=== PATIENT | male | born 1960 | race Caucasian/White ===

== ENCOUNTER 2017-12-26 05:06 | Inpatient (IN) | payer MEDICAID ==
[2017-12-26] MEDS ORDERED: ASPIRIN 81 MG CHEWABLE TAB ONE (05:16)
[2017-12-26] MEDS ORDERED: ASPIRIN 81 MG CHEWABLE TAB PO ONE ×2 (05:16→05:18)
--- NOTE | 2017-12-26 05:17 | CPEKG ---
Heart Rate: 76 RR Interval: 789 P-R Interval: 180 QRSD Interval: 92 QT Interval: 416 QTC Interval: 468 P [place]: 76 QRS [place]: 44 T Wave [place]: 95 EKG Severity - ABNORMAL ECG - EKG Impression: SINUS RHYTHM EKG Impression: INFERIOR INJURY, PROBABLE EARLY ACUTE INFARCT Electronically Signed By: Radha Alonso 26-Dec-2017 21:08:41
[2017-12-26] MEDS ORDERED: NS 1,000 ML IV ONE (05:19)
--- NOTE | 2017-12-26 05:23 | EDPHY ---
H & P Stated Complaint: CP Time Seen by Provider: 12/26/17 05:20 HPI/ROS: Chief Complaint: Chest pain HPI: 57-year-old male woke from sleep this morning with sudden onset of substernal chest pain radiating to his neck. Does not have a history of similar episodes in the past. Pain is a 10 on 10. Pain is described as a tightness in his chest and neck. There are no aggravating or alleviating factors. No shortness of breath. Does have a family history of coronary artery disease. He does smoke. He was drinking some alcohol last night. He also does use some daily marijuana. ROS: 10 point Review of Systems is negative except as noted in the HPI. PMH: Denies Social History: Positive smoking, positive alcohol, positive for marijuana Family History: Coronary artery disease in his grandfather who of a heart attack in his 50s Physical Exam: Gen: Awake, Alert, uncomfortable appearing HEENT: Nose: no rhinorrhea Eyes: PERRLA, EOMI Mouth: Moist mucosa Neck: Supple, no JVD Chest: nontender, lungs clear to auscultation Heart: S1, S2 normal, no murmur Abd: Soft, non-tender, no guarding Back: no CVA tenderness, no midline tenderness Ext: no edema, non-tender Skin: no rash Neuro: CN II-XII intact, Sensation grossly intact, Strength 5/5 in bilateral upper and lower extremities - Personal History Current Tetanus/Diphtheria Vaccine: Unsure Current Tetanus Diphtheria and Acellular Pertussis (TDAP): Unsure - Medical/Surgical History Hx Asthma: No Hx Chronic Respiratory Disease: No Hx Diabetes: No Hx Cardiac Disease: No Hx Renal Disease: No Hx Cirrhosis: No Hx Alcoholism: No Hx HIV/AIDS: No Hx Splenectomy or Spleen Trauma: No Other PMH: medical genital herpes. surgery broken right wrist, vasectomy - Social History Smoking Status: Current every day smoker Constitutional: Initial Vital Signs Temperature (C) 36.7 C 12/26/17 05:08 Heart Rate 60 12/26/17 05:08 Respiratory Rate 16 12/26/17 05:08 Blood Pressure 95/68 L 12/26/17 05:08 O2 Sat (%) 100 12/26/17 05:08 O2 Delivery Mode Room Air Allergies/Adverse Reactions: No Known Allergies Allergy (Unverified 09/09/16 13:52) Home Medications: Medication Instructions Recorded NK [No Known Home Meds] 03/06/14 Medical Decision Making - Diagnostics EKG Interpretation: ECG time 5:16 a.m. Sinus rhythm rate of 76. There is ST elevations of 2-3 mm in leads to 3 and AVF. There are reciprocal changes in V1 through V5. Consistent with an acute inferior infarct. Imaging Results: Chest x-ray is negative per my interpretation. Imaging: I viewed and interpreted images myself ED Course/Re-evaluation: 5:16 a.m. ECG changes noted. Cardiac alert called. Patient has received aspirin. Given his blood pressure 103 systolic in the inferior nature I am not giving him nitrates at this time. He is given morphine 5 mg. Will give him a fluid bolus. Chest x-ray is ordered. Cardiology has been paged. 05:[address] Mascorro, he is on his way to the hospital. 05:45 is at the patient's bedside. Critical Care Time: I spent a total of 37 minutes of critical care time in obtaining history, performing a physical exam, bedside monitoring of interventions, collecting and interpreting tests and discussion with consultants but not including time spent performing procedures. - Data Points Medications Given: Discontinued Medications Aspirin (Aspirin) 324 mg PO EDNOW ONE Stop: 12/26/17 05:17 Last Admin: 12/26/17 05:19 Dose: 324 mg Aspirin (Aspirin) 324 mg PO EDNOW ONE Stop: 12/26/17 05:19 Last Admin: 12/26/17 05:23 Dose: Not Given Sodium Chloride (Ns) 1,000 mls @ 0 mls/hr IV EDNOW ONE; Wide Open PRN Reason: Protocol Stop: 12/26/17 05:20 Last Admin: 12/26/17 05:22 Dose: 1,000 mls Morphine Sulfate (Morphine) 4 mg IVP EDNOW ONE Stop: 12/26/17 05:19 Last Admin: 12/26/17 05:22 Dose: 4 mg Morphine Sulfate (Morphine) 4 mg IVP ONCE ONE Stop: 12/26/17 05:32 Last Admin: 12/26/17 05:36 Dose: 4 mg Ondansetron HCl (Zofran) 4 mg IVP EDNOW ONE Stop: 12/26/17 05:25 Last Admin: 12/26/17 05:25 Dose: 4 mg Departure - Departure Disposition: [facility] Inpatient Acute Clinical Impression: STEMI (ST elevation myocardial infarction) Condition: Serious
[2017-12-26] MEDS ORDERED: ONDANSETRON 4 MG/2 ML VIAL ONE (05:24)
[2017-12-26] MEDS ORDERED: ONDANSETRON 4 MG/2 ML VIAL IVP ONE (05:24)
[2017-12-26] MEDS ORDERED: LIDOCAINE 1% 300 MG/30 ML SDV ONE (05:55)
[2017-12-26] MEDS ORDERED: fentaNYL 100 MCG/2 ML INJ ONE (05:55)
[2017-12-26] MEDS ORDERED: MIDAZOLAM 2 MG/2 ML VIAL ONE ×2 (05:55→06:29)
--- NOTE | 2017-12-26 05:55 | PDPROPOC ---
Sedation Plan of Care Sedation Plan of Care: vital signs stable, mental status noted, patient educated of risks, benefits, alternatives, patient can tolerate sedation ASA Classification: ASA 3 Planned drugs: fentanyl, midazolam Mallampati Score: Class 1 Mallampati Reference Image: Patient passed 3-3-2 rule?: Yes
[2017-12-26] MEDS ORDERED: IOPAMIDOL (ISOVUE-370) 150 ML BTL IV ONE (05:56)
[2017-12-26] MEDS ORDERED: BIVALIRUDIN 250 MG/5 ML VIAL IV ONE (05:58)
--- NOTE | 2017-12-26 05:59 | PDGENHP ---
History and Physical - Chief Complaint chest pain - History of Present Illness 57-year-old male no prior cardiovascular history will this morning with acute onset substernal chest pressure radiating to the jaw. This was associated with diaphoresis shortness of breath. He was extremely uncomfortable and came to the emergency for further evaluation. On arrival EKG showed ST-elevation inferior leads with reciprocal changes cardiac alert was activated. On my arrival the patient has continued to have 6 had 10 chest discomfort. He denies significant shortness of breath. He has no PND orthopnea. He has not had syncope or near syncope. Cardiac Risk includes tobacco abuse. Patient drinks alcohol heavily last drink late last night. History Information - Allergies/Home Medication List Allergies/Adverse Reactions: No Known Allergies Allergy (Unverified 09/09/16 13:52) Home Medications: NK [No Known Home Meds] 03/06/14 [Last Taken Unknown] I have personally reviewed and updated: family history, medical history, social history, surgical history - Surgical History Reports: no pertinent surgical hx - Family History Positive for: CAD - Social History Smoking Status: Current every day smoker Alcohol Use: Heavy Review of Systems Review of Systems: Constitutional: Reports: diaphoresis, malaise EENMT: Reports: no symptoms Cardiac: Reports: chest pain. Denies: edema, irregular heart rate, lightheadedness, palpitations, syncope Respiratory: Reports: shortness of breath. Denies: cough, orthopnea, wheezing Gastrointestinal: Reports: abdominal pain Genitourinary: Reports: no symptoms Muscolosketal: Reports: no symptoms Skin: Reports: no symptoms Neurological: Reports: anxiety Hematologic/Lymphatic: Reports: no symptoms Immunologic/Allergy: Reports: no symptoms Physical Exam Physical Exam: Temp Pulse Resp BP Pulse Ox 36.7 C 76 16 110/79 100 12/26/17 05:08 12/26/17 05:32 12/26/17 05:32 12/26/17 05:32 12/26/17 05:32 O2 (L/minute) 2 Constitutional: uncomfortable Eyes: scleral injection, No icteric sclera Ears, Nose, Mouth, Throat: moist mucous membranes, hearing normal, ears appear normal Cardiovascular: regular rate and rhythym, pulses symmetric bilaterally, No systolic murmur, No irregularly irregular, No JVD, No carotid bruit Peripheral Pulses: 1+: carotid (R), carotid (L), dorsalis-pedis (R), dorsalis- pedis (L), 2+: femoral (R), femoral (L) Respiratory: no respiratory distress, no rales or rhonchi Gastrointestinal: normoactive bowel sounds, soft, non-tender abdomen, no palpable masses, No tenderness, No ascites Genitourinary: no bladder fullness Skin: warm, normal color, no induration Musculoskeletal: full muscle strength, no muscle tenderness Neurologic: AAOx3, No weakness, No facial droop Psychiatric: anxious Lymph, Heme, Immunologic: no cervical LAD, no supraclavicular LAD Lab Data & Imaging Review 12/26/17 05:30 12/26/17 05:30 WBC 10.15 10^3/uL (3.80-9.50) H 12/26/17 05:30 RBC 4.81 10^6/uL (4.40-6.38) 12/26/17 05:30 Hgb 15.2 g/dL (13.7-17.5) 12/26/17 05:30 Hct 43.6 % (40.0-51.0) 12/26/17 05:30 MCV 90.6 fL (81.5-99.8) 12/26/17 05:30 MCH 31.6 pg (27.9-34.1) 12/26/17 05:30 MCHC 34.9 g/dL (32.4-36.7) 12/26/17 05:30 RDW 12.0 % (11.5-15.2) 12/26/17 05:30 Plt Count 232 10^3/uL (150-400) 12/26/17 05:30 Sodium 144 mEq/L (135-145) 12/26/17 05:30 Potassium 4.2 mEq/L (3.5-5.2) 12/26/17 05:30 Chloride 106 mEq/L (97-110) 12/26/17 05:30 Carbon Dioxide 25 mEq/l (22-31) 12/26/17 05:30 Anion Gap 13 mEq/L (8-16) 12/26/17 05:30 BUN 11 mg/dL (7-23) 12/26/17 05:30 Creatinine 0.9 mg/dL (0.7-1.3) 12/26/17 05:30 Estimated GFR > 60 12/26/17 05:30 Glucose 128 mg/dL (70-100) H 12/26/17 05:30 Calcium 10.2 mg/dL (8.5-10.4) 12/26/17 05:30 EKG Interpretation: Positive for: ST elevation (Inferior leads with reciprocal ST depression) Assessment & Plan Assessment: STEMI (ST elevation myocardial infarction) (Acute) This point the patient is hemodynamically stable with ongoing 6 out of 10 discomfort. He will be loaded with 600 mg of Plavix. Direct angiography with likely PCI the right coronary artery. Patient will be aggressively risk stratified with aggressive secondary prevention. In particular discontinuation of cigarettes with addition of a nicotine patch. Considerations for withdrawal from alcohol protocol during hospitalization. Risks and benefits were discussed. The patient's artery received morphine prior to my arrival. This was discussed with his father who was present at the bedside. No contraindications to angiography identified. Plan: Directed angiography with PCI.
[2017-12-26] MEDS ORDERED: CLOPIDOGREL BISULFATE 75 MG TAB PO ONE (06:00)
[2017-12-26] MEDS ORDERED: LORazepam 2 MG/ML INJ IVP PRN (06:04)
[2017-12-26] MEDS ORDERED: NITROGLYCERIN 1,500 MCG/15 ML VIAL MISC ONE (06:39)
[2017-12-26] MEDS ORDERED: NITROGLYCERIN 0.4 MG BTL SL PRN (07:00)
[2017-12-26] MEDS ORDERED: ATROPINE SULFATE 1 MG/10 ML SYR IVP PRN (07:00)
--- NOTE | 2017-12-26 07:08 | PDDXCAT ---
Diagnostic Cath Note - . 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 ZEB grade 0 flow EDP: 24 mm of mercury post procedure LVEF: 50% with inferior basilar akinesis Complications: None Estimated blood loss: <50ml Closure method: Angioseal Assessment: Inferior wall ST segment elevation myocardial infarction with thrombotic occlusion of a large co dominant right coronary artery. Plan: PCI Intervention: Procedure: Balloon angioplasty, Pronto thrombectomy, insertion of a 3.0 by 16 mm synergy stent in the setting of inferior wall ST segment elevation myocardial infarction and thrombotic occlusion of the right coronary. After reviewing diagnostic angiograms elected to proceed with emergency PCI. Patient was pre-loaded with Plavix 600 mg in the emergency department. He has administered Angiomax as an anticoagulant with a therapeutic ACT of 297. Using a 6 Serbian JR4 guiding catheter the right coronary was selectively intubated. Using a 0.014 luge wire the thrombotic occlusion was crossed and the wire was placed in the distal vessel. Initial inflation was performed with a 3 mm balloon to 8 atmospheres for 20 seconds. This allowed some penetration of dye into the distal vessel. A 2nd inflation was performed to 6 atmospheres for 20 seconds more distally with further penetration of dye. There spoke there was significant thrombus burden. The distal vessels seemed quite small. Was elected to proceed with thrombectomy. A Pronto catheter was placed over the wire with 2 thrombectomy runs withdrawing significant thrombus. Repeat angiograms now showed excellent penetration of dye to the distal vessel ZEB grade 2. A focal lesion was seen. A 3.0 x 16 mm synergy stent was placed across the lesion and deployed using a single inflation to 18 atmospheres. Repeat angiograms revealed ZEB grade 2 +flow to the distal vessel. Patient was administered IV normal saline and nitroglycerin. Orthogonal views showed a very distal cutoff. Attempts at rewired the vessel distal to this were made but were not successful. In light of excellent flow was elected to stop at this time. Peripheral angiogram showed the stick to be adequate. The arteriotomy was closed using an Angio-Seal. Patient is taken to the ICU for continued care. Total contrast 300 cc. Sedation 6 mg Versed 100 mcg of fentanyl. Radiation: 9.4 minutes of fluoroscopy with 635 mGy. Conclusions: Inferior wall ST segment elevation myocardial infarction with occlusion of a large codominant right coronary status post successful PCI, thrombectomy, insertion of a 3.0 x 16 mm synergy stent. Patient be treated aggressively with secondary prevention, Erasmo inhibition, beta praveen, high-dose statin, dual antiplatelet therapy with aspirin and Plavix. He has taken to the ICU in stable condition. Patient Problems: Problems Problem Status Onset STEMI (ST elevation myocardial infarction) Acute
--- NOTE | 2017-12-26 07:36 | CPEKG ---
Heart Rate: 63 RR Interval: 952 P-R Interval: 108 QRSD Interval: 92 QT Interval: 436 QTC Interval: 447 P [place]: -86 QRS [place]: 26 T Wave [place]: 75 EKG Severity - ABNORMAL ECG - EKG Impression: ECTOPIC ATRIAL RHYTHM EKG Impression: SHORT MT INTERVAL, ACCELERATED AV CONDUCTION EKG Impression: PROBABLE INFERIOR INFARCT, ACUTE Electronically Signed By: Brenden Daniel 26-Dec-2017 09:11:11
[2017-12-26] MEDS: NS 1,000 ML IV SCH ×2 (07:37→13:56)
--- NOTE | 2017-12-26 07:39 | PDMN ---
Medical Necessity Medical necessity: C/M review: est. > 2 MN LOS for eval and TX of acute inferior ST segment elevation myocardial infarction with occlusion of large codominant right coronary artery requiring emergent cardiac catheterization - [facility], successful PCI, thrombectomy, stent x 1 to RCA, IV fluids, ongoing cardiac monitoring, frequent vital signs, CIWA protocol, pulse oximetry, supplemental O2 in ICU, comorbid tobacco abuse- current every day smoker, heavy alcohol use per H/P, Cardiology procedure report.
--- NOTE | 2017-12-26 08:23 | GCON ---
[f rep st] CONSULTATION POST GRADUATE INTERN CONSULTATION REASON FOR ADMISSION: Coronary artery disease and chest pain. HISTORY OF PRESENT ILLNESS: Mr. Joseph is a 57-year-old white male without known past medical histo ry. He came to the emergency room with complaints of new onset substernal chest pain. This was assoc iated with radiation to the jaw as well as diaphoresis and breathlessness. EKG suggested inferior [place] and cardiac alert was activated. He subsequently went to the cardiac catheterization lab where he w as found to have a 100% occluded RCA. He underwent balloon angioplasty as well as stent placement. Cheo guajardo has been begun on TOBY inhibitors, beta blockers, high-dose statin as well as aspirin and Plavix. Cheo guajardo has been transferred to intensive care unit where he is currently resting comfortably. REVIEW OF SYSTEMS: A 10-point review of systems was performed and is negative with the exception of what was in the HPI. PAST MEDICAL HISTORY: None. PAST SURGICAL HISTORY: None. ALLERGIES: No known allergies to medication. FAMILY HISTORY: Significant for coronary artery disease. SOCIAL HISTORY: He is a 30+ pack-year smoker and continues to smoke. He also has significant alcoho l use. PHYSICAL EXAMINATION: VITAL SIGNS: Blood pressure is 98/56, pulse 65, respiration 11, temperature, he is afebrile, oxygen saturation 97% on 2 L. GENERAL: He is a well-developed, well-nourished, 57-y ear-old white male who is resting comfortably in no acute distress. HEENT: Eyes are PERRLA, EOMI. Th roat shows no erythema or tonsillar hypertrophy. NECK: Supple. There is no cervical adenopathy. H EART: Regular rate and rhythm without murmurs, rubs, or gallops. LUNGS: Diminished breath sounds b ut no wheeze. ABDOMEN: Soft, nontender. Bowel sounds are present in all 4 quadrants. EXTREMITIES: No clubbing, cyanosis, or edema. LABORATORIES: White count is 10, hemoglobin 15, hematocrit 43, platelet count is 232. Sodium 144, p otassium 4.2, chloride 106, CO2 25, BUN 11, creatinine 0.9, glucose is 128, troponins are negative at 0.012. IMPRESSION: 1. Coronary artery disease. 2. Status post inferior myocardial infarction. 3. Status post stenting of the right coronary artery as well as balloon angioplasty. 4. Tobacco abuse. 5. Likely alcoholism. RECOMMENDATIONS: 1. Adequate pain control. 2. Deep venous thrombosis and pulmonary embolus prophylaxis. 3. Stress ulcer prophylaxis. 4. Will watch patient closely for signs of alcohol withdrawal. 5. Will consider nicotine patch. 6. Will discuss with patient regarding smoking cessation, as well as alcohol cessation. /[id number]/MODL
[2017-12-26] MEDS: METOPROLOL TARTRATE 25 MG TAB PO SCH ×2 (08:37→19:49)
[2017-12-26] MEDS: THIAMINE HCL 500 MG in NS 500 ML IV SCH (08:37)
[2017-12-26] MEDS: ATORVASTATIN CALCIUM 40 MG TAB PO SCH (08:38)
[2017-12-26] MEDS: ASPIRIN EC 325 MG TAB PO SCH (08:38)
[2017-12-26] MEDS ORDERED: NICOTINE 21 MG/24 HR PATCH TD SCH (09:00)
[2017-12-26] MEDS: LISINOPRIL 2.5 MG TAB PO SCH (09:40)
[2017-12-26 10:29] LABS: CREATINE KINASE 638 IU/L (0-224)
[2017-12-26] MEDS: ONDANSETRON 4 MG/2 ML VIAL IVP PRN ×2 (12:48→20:42)
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
[2017-12-26] MEDS: PANTOPRAZOLE SODIUM 40 MG VIAL IVP SCH (12:51)
[2017-12-26 14:48] LABS: CREATINE KINASE 895 IU/L (0-224)
[2017-12-26] MEDS ORDERED: PROTOCOL MAGNESIUM 1 DOSE IV PRN (16:23)
[2017-12-26] MEDS ORDERED: PROTOCOL POTASSIUM 1 DOSE MISC PRN (16:23)
[2017-12-26 16:43] LABS: CREATINE KINASE 1080 IU/L (0-224)
--- NOTE | 2017-12-26 17:02 | CPEKG ---
Heart Rate: 66 RR Interval: 909 P-R Interval: 136 QRSD Interval: 98 QT Interval: 416 QTC Interval: 436 P [place]: 42 QRS [place]: -21 T Wave [place]: 31 EKG Severity - ABNORMAL ECG - EKG Impression: SINUS RHYTHM EKG Impression: PROBABLE INFERIOR INFARCT, AGE INDETERMINATE Electronically Signed By: Brenden Daniel 27-Dec-2017 12:08:26
[2017-12-26 23:11] LABS: CREATINE KINASE 1200 IU/L (0-224)
[2017-12-27 03:57] LABS: PLATELET COUNT 162 10^3/uL (150-400)
[2017-12-27] MEDS ORDERED: MAGNESIUM SULF 1 GM/DEXTROSE 100 ML IV ONE (05:38)
--- NOTE | 2017-12-27 07:58 | SOAPPROG ---
SOAP Progress Note Assessment/Plan: Assessment: 1. Inferior wall ST segment elevation myocardial infarction with nonsustained ventricular tachycardia. 2. Mild ischemic cardiomyopathy ejection fraction 50% with inferior akinesis. 3. Coronary artery disease status post PCI the right coronary. 4. Tobacco abuse. 5. Heavy alcohol use. 6. Postoperative anemia with GI bleeding and blood in the stool. 7. Post myocardial infarction depression. Procedures: Left heart catheterization PCI and stenting of the right coronary artery with thrombectomy. 12/26/2017. Echocardiogram pending for today. 12/27/17 08:51 Impression: Day 1. Status post myocardial infarction. Telemetry overnight showed nonsustained ventricular tachycardia. Blood pressure has been soft. Hospital course complicated by intermittent nausea and vomiting. No further chest pain. Plan: Advanced diet slowly. Electrolyte replacement. Continue current medical therapy. Discontinue nicotine patches this may be contributing to his nausea. Follow hematocrit carefully with bleeding in the stool need for dual antiplatelet therapy. Begin phase 1 cardiac rehabilitation. Support offered for expected depression related to acute illness. Subjective: Intermittent nausea and vomiting with difficulty keeping food down. Episode of bright red blood per rectum without melena. No further chest pain, shortness of breath. No palpitations, syncope, near syncope. No PND orthopnea. Social history: Patient reports not smoking heavily at home. He is tearful today related to illness. He loves his family and would like to be there for his children. Objective: Medications Generic Name Dose Route Start Last Admin Trade Name Freq PRN Reason Stop Dose Admin Aspirin Buffered 325 mg 12/26/17 09:00 12/26/17 08:38 Aspirin Ec PO 06/24/18 08:59 325 mg DAILY [facility] Atorvastatin Calcium 80 mg 12/26/17 09:00 12/26/17 08:38 Lipitor PO 06/24/18 08:59 80 mg DAILY [facility] Clopidogrel Bisulfate 75 mg 12/27/17 09:00 Plavix PO 06/25/18 08:59 DAILY [facility] Lisinopril 2.5 mg 12/26/17 09:00 12/26/17 09:40 Zestril PO 06/24/18 08:59 2.5 mg DAILY [facility] Metoprolol Tartrate 25 mg 12/26/17 09:00 12/26/17 19:49 Lopressor PO 06/24/18 08:59 25 mg BID [facility] Nicotine 21 mg 12/26/17 09:00 12/26/17 08:37 Nicoderm Cq TD 06/24/18 08:59 21 mg DAILY [facility] Vital Signs Temp Pulse Resp BP Pulse Ox 37.3 C 71 15 91/57 L 93 12/27/17 04:00 12/27/17 06:00 12/27/17 06:00 12/27/17 06:00 12/27/17 06:00 Laboratory Results 12/27/17 03:45 12/27/17 03:45 12/26/17 12/27/17 12/28/17 05:59 05:59 05:59 Intake Total 6605 Output Total 350 Balance 6255 Laboratory Tests 12/26/17 12/26/17 12/26/17 09:30 14:00 15:54 Creatinine Creatine Kinase 895 H 1080 H Troponin I 11.500 H 24.800 H 30.300 H NT-Pro-B Natriuret Pep 12/26/17 12/27/17 22:15 03:45 Creatinine 0.8 Creatine Kinase 1200 H Troponin I 36.900 H NT-Pro-B Natriuret Pep 822 H Physical Exam - Physical Exam General Appearance: alert, anxiety EENT: PERRL/EOMI, normal ENT inspection Neck: non-tender, full range of motion, supple Respiratory: chest non-tender, lungs clear, normal breath sounds Cardiac/Chest: normal peripheral pulses, regular rate, rhythm, gallop, No edema , No JVD, No systolic murmur Peripheral Pulses: 1+: carotid (R), carotid (L), 2+: femoral (R) (No hematoma. No bruit), femoral (L) Abdomen: normal bowel sounds, non-tender, soft, No organomegaly, No guarding, No rebound Rectal: blood streaked stool, other (By history) Back: Normal inspection, No CVA tenderness Skin: normal color, warm/dry, No cyanosis Lymphatic: no adenopathy Extremities: normal range of motion, non-tender, No pedal edema, No calf tenderness Neuro/Psych: no motor/sensory deficits, alert, normal mood/affect, depressed affect, No facial droop ICD10 Worksheet Patient Problems: Problems Problem Status Onset STEMI (ST elevation myocardial infarction) Acute Review of Systems - Review of Systems Constitutional: weakness. denies: chills, fever EENTM: no symptoms reported Respiratory: no symptoms reported Cardiac: no symptoms reported Gastrointestinal/Abdominal: nausea, vomiting, blood streaked stools Genitourinary: no symptoms Musculoskelatal: no symptoms Skin: no symptoms Neurological: no symptoms, depressed Hematologic/Lymphatic: no symptoms reported Immunologic/allergic: no symptoms reported Past Medical History - Personal History Current Tetanus/Diphtheria Vaccine: Unsure Current Tetanus Diphtheria and Acellular Pertussis (TDAP): Unsure - Medical/Surgical History Hx Asthma: No Hx Chronic Respiratory Disease: No Hx Cardiac Disease: No Hx Diabetes: No Hx Renal Disease: No Hx Alcoholism: No Hx Cirrhosis: No Hx HIV/AIDS: No Hx Splenectomy or Spleen Trauma: No Other PMH: medical genital herpes. surgery broken right wrist, vasectomy - Social History Smoking Status: Current every day smoker Alcohol Use: Heavy
[2017-12-27] MEDS: THIAMINE HCL 500 MG in NS 500 ML IV SCH (09:00)
[2017-12-27] MEDS: PANTOPRAZOLE SODIUM 40 MG VIAL IVP SCH ×2 (09:26→21:18)
[2017-12-27] MEDS: ATORVASTATIN CALCIUM 40 MG TAB PO SCH (09:26)
[2017-12-27] MEDS: LISINOPRIL 2.5 MG TAB PO SCH (09:26)
[2017-12-27] MEDS: ASPIRIN EC 325 MG TAB PO SCH (09:27)
[2017-12-27] MEDS: CLOPIDOGREL BISULFATE 75 MG TAB PO SCH (09:27)
[2017-12-27] MEDS: METOPROLOL TARTRATE 25 MG TAB PO SCH ×2 (09:27→21:18)
[2017-12-27] MEDS ORDERED: NS W/ 20 KCl/L 1,000 ML IV SCH (09:45)
--- NOTE | 2017-12-27 09:59 | ASMTCMCOM ---
CM Note CM Note Notes: 57yr old male admitted for STEMI, CAD, CP. He has a Hx of smoking and ETOH. Lives with his family. CM to give patient ETOH res. Patient to attend Cardiac Rehab on discharge. Date Signed: 12/27/2017 09:58 AM Electronically Signed By:Callie Grace LCSW
--- NOTE | 2017-12-27 10:29 | ECHO ---
[email or web address] [address] [address] Main: [phone] Fax: [email or web address] Echocardiogram Name: YANY BOYD MR#: [id number] Study Date: 12/27/2017 Study Time: 08:54 AM Date of : 1960 Age: 57 year(s) Height: 177.8 cm (70 in.) Weight: 81.65 kg (180 lb.) BSA: 2 m2 Gender: Male Examination: Echo Indication: STEMI Image Quality: Adequate Contrast: Requested by: Sal Mascorro BP: 93 mmHg/58 mmHg Heart Rate: Rhythm: Indication: STEMI Procedure Staff Veterinary Technician Assistant: Rachel Nixon [facility] Reading Physician: Sal Mascorro MD Requesting Provider: Measurements: Chambers Valvular Assessment AV/MV Valvular Assessment TV/PV Normal Normal Normal Name Value Range Name Value Range Name Value Range Ao Norah (MM): 2.9 cm (2.2 cm-3.7 AV Vmax: 1.50 m/s (1 m/s-1.7 TR Vmax: 2.50 mm/s ( - ) cm) m/s) TR PGmax: 25 mmHg ( - ) IVSd (2D): 0.9 cm (0.6 cm-1.1 AV maxP mmHg ( - ) syst. PAP: 35 mmHg ( - ) cm) LVOT Vmax: 1.25 m/s (0.7 m/s-1.1 PV Vmax: 1.03 m/s (0.6 m/s-0.9 LVDd (2D): 4.8 cm (4.2 cm-5.9 m/s) m/s) cm) MV E Vmax: 0.86 m/s ( - ) PV PGmax: 4 mmHg ( - ) LVDs (2D): 3.4 cm (2.1 cm-4 MV A Vmax: 0.56 m/s ( - ) cm) MV E/A: 1.54 ( - ) LVPWd (2D): 0.8 cm (0.6 cm-1 cm) LVEF (BP): 55 % (>=55 %) RVDd(2D): 3.7 cm (1.9 cm-3.8 cmmm) Continued Measurements: Chambers Valvular Assessment AV/MV Valvular Assessment TV/PV Name Value Name Value Name Value LADs: 3.2 cm MV DecTime: 243 m/s CVP (est.): 10 mmHg LADs Lon.8 cm MV E' Septal: 0.08 m/s LA Area: 20.1 cm2 MV E/E' Septal: 10.50 LA Volume: 61 ml MV E/E' Lateral: 8.60 LA Volume Index: 30.5 ml/m2 TAPSE: 2.7 cm RA Area: 18.0 cm2 Patient: YANY BOYD Study Date: 12/27/2017 Page 1 of 2 08:54 AM Additional Vessels Name Value Ao Ascendin.4 cm Findings: Left Ventricle: Normal size left ventricle. No LV hypertrophy. Normal global systolic LV function. EF is 55 %. No regional wall motion abnormality. Normal diastolic LV function. Right Ventricle: Normal size right ventricle. Normal RV function. Left Atrium: The left atrium is normal in size. Right Atrium: The right atrium is borderline dilated. Mitral Valve: The mitral valve is normal in appearance and function. Trivial mitral valve regurgitation. No mitral stenosis is present. Aortic Valve: The aortic valve is normal in appearance and function. There is no significant aortic valve regurgitation. No aortic valve stenosis is present. Tricuspid Valve: The tricuspid valve is normal in appearance and function. Mild tricuspid regurgitation is present. Right ventricular systolic pressure measures 35mmHg. The pulmonary artery pressure is normal. Pulmonic Valve: The pulmonic valve is normal in appearance and function. Trivial pulmonic valve regurgitation. Aorta: The aorta is normal. Normal size aortic root measuring 2.9 cm. Normal size ascending aorta measuring 3.4 cm. IVC: The IVC is dilated. Pericardium: Trivial anterior pericardial effusion. (No Signature Object) Patient: YANY BOYD Study Date: 12/27/2017 Page 2 of 2 08:54 AM [id number]
--- NOTE | 2017-12-27 18:02 | HOSPPROG ---
Hospitalist Progress Note Assessment/Plan: #Inferior wall STEMI (ST elevation myocardial infarction) #s/p PCI, balloon angioplasty, stent placement #Tobacco abuse disorder #chronic ETOH use, not in WD #Nause and Vomiting #questionable GI Bleed, heme + stool #Anemia #Gastritis #Soft BP Plan: He has had blood per rectum. Originally reports as bright red, but now possibly some melena. Will increase PPI to BID dosing and monitor H/H closely. If further drop then he would need GI consult and possible transfusion. He remains on dual antiplatelet therapy Antiemetics PRN BP is soft. Will provide IVF at this time. He has already received low dose BB and TOBY-I and for now this will be continued Nicotine patches have been d/c due to nausea CIWA-Ativan, does not appear to be in WD DVT proph per primary, would hold off on chemical proph cont ICU care Subjective: bp is soft. + nause and vomiting. Objective: Vital Signs Temp Pulse Resp BP Pulse Ox 37.9 C 68 18 102/73 89 L 12/27/17 17:02 12/27/17 17:02 12/27/17 17:02 12/27/17 17:02 12/27/17 17:02 Laboratory Results 12/27/17 03:45 12/27/17 03:45 12/26/17 12/27/17 12/28/17 05:59 05:59 05:59 Intake Total 6605 1700 Output Total 350 Balance 6255 1700 - Physical Exam Constitutional: no apparent distress Eyes: PERRL Ears, Nose, Mouth, Throat: moist mucous membranes Cardiovascular: regular rate and rhythym, No edema Respiratory: no respiratory distress Gastrointestinal: normoactive bowel sounds Skin: warm Neurologic: AAOx3 Psychiatric: interacting appropriately, not anxious, not encephalopathic Lymph, Heme, Immunologic: No petechiae ICD10 Worksheet Patient Problems: Problems Problem Status Onset STEMI (ST elevation myocardial infarction) Acute
[2017-12-28 03:59] LABS: PLATELET COUNT 146 10^3/uL (150-400)
--- NOTE | 2017-12-28 09:05 | CPEKG ---
Heart Rate: 66 RR Interval: 909 P-R Interval: 144 QRSD Interval: 100 QT Interval: 424 QTC Interval: 445 P [place]: 25 QRS [place]: -36 T Wave [place]: -48 EKG Severity - ABNORMAL ECG - EKG Impression: SINUS RHYTHM EKG Impression: INFERIOR INFARCT, likely recent Electronically Signed By: Sae Varner 30-Dec-2017 10:11:09
--- NOTE | 2017-12-28 09:10 | HOSPPROG ---
Hospitalist Progress Note Assessment/Plan: # abd pain/melena/BRBPR/anemia - check stat CT abd/pelvis - discussed with Dr Escalante - based on CT may need EGD # etOH use - not in w/d - cont CIWA today, may dc tomorrow # STEMI s/p RCA stent - management per cards (currently on asa/plavix/lipitor/metop/lisino) Subjective: c/o inability to sonia PO with emesis; also c/o significant abd pain Objective: Vital Signs Temp Pulse Resp BP Pulse Ox 37.1 C 68 18 100/64 94 12/28/17 08:11 12/28/17 08:11 12/28/17 08:11 12/28/17 08:11 12/28/17 08:11 Laboratory Results 12/28/17 03:08 12/28/17 03:08 12/27/17 12/28/17 12/29/17 05:59 05:59 05:59 Intake Total 6605 2440 900 Output Total 350 425 Balance 6255 2014 chart reviewed echo reviewed - Physical Exam Constitutional: no apparent distress, appears nourished Cardiovascular: regular rate and rhythym, systolic murmur, No irregularly irregular Respiratory: no respiratory distress, no rales or rhonchi Gastrointestinal: normoactive bowel sounds, guarding (voluntary), rebound, other (diffuse TTP, mostly RLQ) ICD10 Worksheet Patient Problems: Problems Problem Status Onset STEMI (ST elevation myocardial infarction) Acute
[2017-12-28] MEDS ORDERED: IOPAMIDOL (ISOVUE-300) 100 ML BTL ONE (09:12)
[2017-12-28] MEDS ORDERED: NS 1,000 ML IV SCH (09:15)
[2017-12-28 09:46] LABS: INR 1.18 (0.83-1.16); PROTIME(PATIENT) 15.2 SEC (12.0-15.0)
[2017-12-28] MEDS: PANTOPRAZOLE SODIUM 40 MG VIAL IVP SCH ×2 (10:19→21:47)
[2017-12-28] MEDS: LISINOPRIL 2.5 MG TAB PO SCH (10:21)
[2017-12-28] MEDS: METOPROLOL TARTRATE 25 MG TAB PO SCH ×2 (10:21→21:47)
--- NOTE | 2017-12-28 10:26 | SOAPPROG ---
SOAP Progress Note Assessment/Plan: Assessment: 1. Inferior wall ST segment elevation myocardial infarction with nonsustained ventricular tachycardia. 2. Mild ischemic cardiomyopathy ejection fraction 50% with inferior akinesis. 3. Coronary artery disease status post PCI the right coronary. 4. Tobacco abuse. 5. Heavy alcohol use. 6. Postoperative anemia with GI bleeding and blood in the stool. 7. Post myocardial infarction depression. *8. Abdominal pain Procedures: Left heart catheterization PCI and stenting of the right coronary artery with thrombectomy. 12/26/2017. Echocardiogram 12/27/2017 normal LV function without complication. 12/28/17 10:23 Impression: Day 2 status post inferior wall myocardial infarction. Hemodynamics remained stable. Hospital course now complicated by ill-defined abdominal pain associated with tenderness on examination and inability to eat. GI workup in progress. IV fluids. GI evaluation. Continue current medical therapy. 12/27/17 08:51 Impression: Day 1. Status post myocardial infarction. Telemetry overnight showed nonsustained ventricular tachycardia. Blood pressure has been soft. Hospital course complicated by intermittent nausea and vomiting. No further chest pain. Plan: Advanced diet slowly. Electrolyte replacement. Continue current medical therapy. Discontinue nicotine patches this may be contributing to his nausea. Follow hematocrit carefully with bleeding in the stool need for dual antiplatelet therapy. Begin phase 1 cardiac rehabilitation. Support offered for expected depression related to acute illness. Subjective: Not feeling well. Not taking p.o. intake at all. Abdominal pain in the mid epigastrium associated with some vomiting. Continued melena/bright red blood per rectum. From a cardiac point of view no chest pain shortness of breath PND orthopnea. No syncope or palpitations. Objective: Medications Generic Name Dose Route Start Last Admin Trade Name Pérez PRN Reason Stop Dose Admin Aspirin Buffered 325 mg 12/26/17 09:00 12/27/17 09:27 Aspirin Ec PO 06/24/18 08:59 325 mg DAILY [facility] Atorvastatin Calcium 80 mg 12/26/17 09:00 12/27/17 09:26 Lipitor PO 06/24/18 08:59 80 mg DAILY [facility] Clopidogrel Bisulfate 75 mg 12/27/17 09:00 12/27/17 09:27 Plavix PO 06/25/18 08:59 75 mg DAILY [facility] Lisinopril 2.5 mg 12/26/17 09:00 12/27/17 09:26 Zestril PO 06/24/18 08:59 2.5 mg DAILY [facility] Metoprolol Tartrate 25 mg 12/26/17 09:00 12/27/17 21:18 Lopressor PO 06/24/18 08:59 25 mg BID [facility] Vital Signs Temp Pulse Resp BP Pulse Ox 37.1 C 68 18 100/64 94 12/28/17 08:11 12/28/17 08:11 12/28/17 08:11 12/28/17 08:11 12/28/17 08:11 Laboratory Results 12/28/17 03:08 12/28/17 03:08 12/27/17 12/28/17 12/29/17 05:59 05:59 05:59 Intake Total 6605 2440 900 Output Total 350 425 Balance 6255 2015 900 PT 15.2 SEC (12.0-15.0) H 12/28/17 09:30 INR 1.18 (0.83-1.16) H 12/28/17 09:30 Laboratory Tests 12/27/17 03:45 AST 220 H Lactate Dehydrogenase 1230 H Physical Exam - Physical Exam General Appearance: alert, no apparent distress EENT: PERRL/EOMI Neck: non-tender, full range of motion Respiratory: chest non-tender, lungs clear, normal breath sounds Cardiac/Chest: normal peripheral pulses, regular rate, rhythm, No edema, No gallop, No JVD Peripheral Pulses: 1+: carotid (R), carotid (L), femoral (R), femoral (L) Abdomen: No rebound Skin: warm/dry Lymphatic: no adenopathy Extremities: normal range of motion Neuro/Psych: no motor/sensory deficits ICD10 Worksheet Patient Problems: Problems Problem Status Onset Abdominal pain Acute STEMI (ST elevation myocardial infarction) Acute Review of Systems - Review of Systems Constitutional: malaise, weakness. denies: chills, fever Respiratory: no symptoms reported Cardiac: no symptoms reported Gastrointestinal/Abdominal: abdominal pain, vomiting, black stools, blood streaked stools Genitourinary: no symptoms Musculoskelatal: no symptoms Skin: no symptoms Neurological: no symptoms Hematologic/Lymphatic: no symptoms reported Immunologic/allergic: no symptoms reported
[2017-12-28] MEDS: THIAMINE HCL 500 MG in NS 500 ML IV SCH (10:54)
[2017-12-28] MEDS: ATORVASTATIN CALCIUM 40 MG TAB PO SCH (11:03)
[2017-12-28] MEDS: CLOPIDOGREL BISULFATE 75 MG TAB PO SCH (11:05)
[2017-12-28] MEDS: ASPIRIN EC 325 MG TAB PO SCH (11:05)
--- NOTE | 2017-12-28 14:13 | ASMTCAGE ---
CAGE Do you feel you ought to Answers: Yes cut down on your drinking or drug use? Do people annoy you by Answers: No criticizing your drinking or drug use? Do you feel guilty about Answers: No your drinking or drug use? Do you drink or use drugs Answers: No first thing in the morning ([employer])? Additional Comments Pt states that night before admission he had 3 margaritas + 2 beers (8%). He normally drinks 2 -3 bottles of wine a week. He drinks 3 - 5 times/week rarely hard liquor, mostly beer and wine. Pt refused alcohol cessation resources Date Signed: 12/28/2017 02:12 PM Electronically Signed By:Ammy Luna RN
[2017-12-28] MEDS ORDERED: POTASSIUM CL 10 MEQ TAB PO ONE ×2 (18:35→21:24)
[2017-12-29 03:31] VITALS: RESP 16; O2SAT 94
[2017-12-29 04:00] LABS: PLATELET COUNT 153 10^3/uL (150-400)
[2017-12-29 08:25] VITALS: BP 108/67; PULSE 71; TEMP 98
[2017-12-29] MEDS: ATORVASTATIN CALCIUM 40 MG TAB PO SCH (08:27)
[2017-12-29] MEDS: ASPIRIN EC 325 MG TAB PO SCH (08:27)
[2017-12-29] MEDS: METOPROLOL TARTRATE 25 MG TAB PO SCH (08:27)
[2017-12-29] MEDS: CLOPIDOGREL BISULFATE 75 MG TAB PO SCH (08:27)
[2017-12-29] MEDS: LISINOPRIL 2.5 MG TAB PO SCH (08:27)
[2017-12-29] MEDS: THIAMINE HCL 100 MG TAB PO SCH ×2 (08:27→08:39)
[2017-12-29] MEDS: PANTOPRAZOLE SODIUM 40 MG VIAL IVP SCH (08:28)
[2017-12-29] MEDS ORDERED: POTASSIUM CL 10 MEQ TAB PO ONE (08:40)
--- NOTE | 2017-12-29 09:16 | PDDCSUM ---
Discharge Summary Discharge Summary: Admission date: 12/26/2017. Discharge date: 12/30/19 18. Admission diagnosis: ST segment elevation myocardial infarction. Discharge diagnosis ST segment elevation myocardial infarction involving occlusion of the right coronary artery. Nonspecific colitis rule leading to GI bleeding. Tobacco abuse. Alcohol use. Follow-up: [place] 7-10 days. Cardiac rehabilitation 1 week. Medications per attached sheet. Procedures during this hospitalization left heart catheterization coronary ventricular angiography stenting of the right coronary. Echocardiogram. CT of the abdomen. Consultation Hospital Medicine, critical Care Medicine, Cardiology. Hospital course patient is a 57-year-old male admitted to the hospital emergently with an ST segment elevation myocardial infarction. He was taken the cardiac catheterization lab where he was found have an occluded right coronary artery and underwent successful thrombectomy with stenting. He tolerated the procedure well. On the 1st postoperative day he experienced significant nausea vomiting with bright red blood per rectum and ultimately melena. Hemoglobin hematocrit remained stable. He was treated symptomatic Richard. Evaluation by Hospital Medicine by CT scan showed colitis that was nonspecific. No further intervention was required. Today the patient is eating well without limitations. He has no further abdominal pain he has had no further nausea or vomiting. Echocardiogram done the 1st operative day showed normalized LV function without compromise of the mitral valve. Risk factors have been addressed with high-dose statin therapy. He is on Erasmo inhibitor for remodeling. Beta-praveen and dual antiplatelet therapy. He is tolerating medications well and is rated begin cardiac rehabilitation. Today heart rate is 62. Blood pressure 109/70. Well-nourished well-developed male no distress. Chest was clear. Cardiac exam reveals soft S4. His abdomen is soft with good bowel sounds there is no tenderness. There is no rebound or guarding. Extremities are free of edema. Problem list 1. Coronary disease continue aggressive secondary prevention as outlined above. 2. Status post inferior wall myocardial infarction with revascularization continue dual antiplatelet therapy for 1 year begin cardiac rehabilitation. 3. Tobacco abuse patient's been advised about discontinuing all tobacco products. 4. Alcohol use discussed at length. 5. Colitis conservative management at this point.
--- NOTE | 2017-12-29 09:37 | HOSPPROG ---
Hospitalist Progress Note Assessment/Plan: # colitis - likely ischemic; GI pathogen panel negative - supportive care; discussed warning signs and when to return to the ED # etOH use - did not go through withdrawal # STEMI s/p RCA stent - management per cards (currently on asa/plavix/lipitor/metop/lisino) # dispo - ok for dc today from IM perspective Subjective: pain in abdomen better; eating, still not having formed stools Objective: Vital Signs Temp Pulse Resp BP Pulse Ox 36.7 C 71 16 108/67 94 12/29/17 08:24 12/29/17 08:24 12/29/17 08:24 12/29/17 08:24 12/29/17 08:24 Microbiology 12/28/17 18:50 Gastrointestinal Tract Panel (PCR) - Final Stool No Organism Detected Laboratory Results 12/29/17 03:10 12/29/17 03:10 12/28/17 12/29/17 12/30/17 05:59 05:59 05:59 Intake Total 2440 3163 Output Total 425 1600 Balance 2014 1562 PT 15.2 SEC (12.0-15.0) H 12/28/17 09:30 INR 1.18 (0.83-1.16) H 12/28/17 09:30 - Physical Exam Constitutional: no apparent distress, appears nourished Eyes: anicteric sclera Ears, Nose, Mouth, Throat: hearing normal Cardiovascular: No edema Respiratory: no respiratory distress Gastrointestinal: no palpable masses, other (TTP, LLQ; no rebound or guarding) Genitourinary: No ibanez in urethra Skin: warm Musculoskeletal: full muscle strength Neurologic: AAOx3 Psychiatric: not anxious ICD10 Worksheet Patient Problems: Problems Problem Status Onset Abdominal pain Acute STEMI (ST elevation myocardial infarction) Acute
--- NOTE | 2017-12-29 12:50 | GCON ---
[f rep st] CONSULTATION INPATIENT CONSULTATION NOTE REFERRING PHYSICIAN: Irwin Santillan MD REASON FOR CONSULTATION: Abdominal pain and bloody stool. CHIEF COMPLAINT: Abdominal pain and diarrhea. HISTORY OF PRESENT ILLNESS: The patient is a pleasant 57-year-old male who was admitted to the hospital on 12/26/2017 for the evaluation of chest pain. His hospital course was notable for the diagnosis of an ST-segment elevation myocardial infarction. Ultimately, he underwent coronary angiography and stent placement. His postoperative care has been uncomplicated until yesterday when he began reporting increasing degree of abdominal discomfort. He was noted to have diarrhea and maroon colored stools. In the setting of abdominal pain, diarrhea, and maroon stools, he underwent abdominal CT scan, which showed colitis. Colitis was noted in the cecum as well as descending colon. His abdominal symptoms persist but have been slowly resolving. Today, he reports no blood in his stool. He reports he has significant abdominal cramping and discomfort with meals. He is, however, tolerating p.o. intake without vomiting. PAST MEDICAL HISTORY: None. PAST SURGICAL HISTORY: None. ALLERGIES: None. OUTPATIENT MEDICATIONS: None. FAMILY HISTORY: Significant for coronary artery disease. SOCIAL HISTORY: He is a smoker with a 30+ pack-year smoking history. He also drinks alcohol on a regular basis. PHYSICAL EXAMINATION: GENERAL: This is a well-developed male, in no apparent distress. HEENT: His pupils are equal, round, reactive to light and accommodation. Sclerae nonicteric. His oropharynx is clear. NECK: Supple without lymphadenopathy. HEART: Regular without murmur. ABDOMEN: Soft but tender throughout. EXTREMITIES: Free of cyanosis, clubbing, and edema. NEURO : Grossly nonfocal. SKIN: Warm and dry without rashes. PSYCH: Reveals normal mood and affect. LABORATORY TESTING: Shows a white count of 9.46 with a hemoglobin of 11.8 and hematocrit of 34.0, platelet count of 153. INR at admission was 1.18. Sodium of 141, potassium of 3.6, chloride of 110, bicarb of 23, BUN of 10, creatinine of 0.8. Stool testing was negative. CT scan of the abdomen and pelvis on 12/28/2017 reveals cecum and descending colon colitis. IMPRESSION/RECOMMENDATIONS: The patient's symptoms are likely related to colitis. The most likely etiology of this colitis is ischemic in the setting of recent myocardial infarction. The differential might also include inflammatory bowel disease, malignancy, or infection. Infection has been ruled out with stool testing. Malignancy and inflammatory bowel disease are unlikely. In the setting of his recent myocardial infarction, additional invasive workup with laxative purge and colonoscopy is not warranted. Should he not improve spontaneously, we may need to reconsider. At this point, I recommend gradual diet advancement and continued observational care. It may take 7-14 days for his abdominal symptoms to resolve. Should he have worsening symptoms meanwhile, we may need to consider repeat imaging and/or colonoscopy. will sign off, call with questions. /[id number]/[id number] MTDD
== END 2017-12-29 12:09 | disposition home or self-care (01) | DRG 246 ==
LOC: F2N 07:16 → F2W 12-27 16:32
PROVIDERS: ADMIT Internal Medicine Interventional Cardiology; ATTEND Internal Medicine Interventional Cardiology
PROC: 02C03ZZ Extirpation of Matter from Coronary Artery, One Artery, Percutaneous Approach (ICD-10-PCS; principal; 2017-12-26)
PROC: 027034Z Dilation of Coronary Artery, One Artery with Drug-eluting Intraluminal Device, Percutaneous Approach (ICD-10-PCS; principal; 2017-12-26)
PROC: 4A023N7 Measurement of Cardiac Sampling and Pressure, Left Heart, Percutaneous Approach (ICD-10-PCS; principal; 2017-12-26)
PROC: B2151ZZ Fluoroscopy of Left Heart using Low Osmolar Contrast (ICD-10-PCS; principal; 2017-12-26)
PROC: B2111ZZ Fluoroscopy of Multiple Coronary Arteries using Low Osmolar Contrast (ICD-10-PCS; principal; 2017-12-26)
DX: I21.11 ST elevation (STEMI) myocardial infarction involving right coronary artery (principal); K55.039 Acute (reversible) ischemia of large intestine, extent unspecified; Z72.0 Tobacco use; Z72.89 Other problems related to lifestyle
CPT/HCPCS: 96374; C1725; C1757; C1760; C1769; C1874; C1887; C9606; J0583; J1644; J2060; J2250; J2270; J2405; J3010; J3411; J3475; Q9967

== ENCOUNTER 2019-03-01 06:20 | Day surgery (SDC) | payer MEDICAID ==
[2019-03-01] MEDS ORDERED: BUPIVACAINE/EPI 0.5% 30 ML SDV ONE (06:36)
[2019-03-01] MEDS ORDERED: LR 1,000 ML IV ONE (06:37)
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
[2019-03-01] MEDS ORDERED: MIDAZOLAM 2 MG/2 ML VIAL IVP ONE (06:51)
--- NOTE | 2019-03-01 07:01 | PDHPUP ---
History & Physical Update H&P update statement: This history and physical update is based on an assessment of the patient which was completed after admission or registration (within 24 hours), but prior to the surgery/procedure. H&P update: H&P reviewed & patient examined, no change in patient's condition since H&P completed
[2019-03-01] MEDS ORDERED: fentaNYL 100 MCG/2 ML INJ ONE (07:08)
[2019-03-01] MEDS ORDERED: LIDOCAINE 2% 2 ML INJ ONE (07:09)
[2019-03-01] MEDS ORDERED: PROPOFOL 200 MG/20 ML VIAL ONE (07:09)
[2019-03-01] MEDS ORDERED: ROCURONIUM 50 MG/5 ML VIAL ONE (07:10)
[2019-03-01] MEDS ORDERED: DEXAMETHASONE 4 MG/ML VIAL ONE (07:22)
[2019-03-01] MEDS ORDERED: ONDANSETRON 4 MG/2 ML VIAL ONE (07:22)
[2019-03-01] MEDS ORDERED: KETOROLAC 30 MG/1 ML SDV ONE (07:22)
[2019-03-01] MEDS ORDERED: HYDROmorphONE/DILAUDID 1 MG/ML INJ IVP PRN (07:34)
[2019-03-01] MEDS ORDERED: ONDANSETRON 4 MG/2 ML VIAL IVP PRN (07:34)
[2019-03-01] MEDS ORDERED: PROMETHAZINE HCL 25 MG/ML INJ IVP PRN (07:34)
[2019-03-01] MEDS ORDERED: NALOXONE HCL 0.4 MG/ML INJ IVP PRN (07:34)
[2019-03-01] MEDS ORDERED: fentaNYL 100 MCG/2 ML INJ IVP PRN (07:34)
[2019-03-01] MEDS ORDERED: PHENYLEPHRINE HCL 100 MCG/ML SYR ONE (07:41)
[2019-03-01] MEDS ORDERED: SUGAMMADEX SODIUM 200 MG/2 ML VIAL IVP ONE (07:45)
--- NOTE | 2019-03-01 07:56 | POSTOPPROG ---
Post Op Note Date of Operation: 03/01/19 Surgeon: Minh Pena Anesthesiologist: Robert Sandoval Anesthesia: GET(General Endotracheal) Pre-op Diagnosis: BIH Post-op Diagnosis: Same Procedure: Lap BIH Findings: bilateral indirect Inf/Abcess present in the surg proc area at time of surgery?: No EBL: Minimal Complications: no immediate Specimen(s): none
--- NOTE | 2019-03-01 08:01 | POSTANESTH ---
Post Anesthetic Evaluation Cardiovascular Status: Similar to Pre-Op Cond Respiratory Status: Similar to Pre-op Cond. Level of Consciousness/Mental Status: Alert and Oriented Pain Control: Adequate, Prn Tx Ordered Nausea/Vomiting Control: Adequate, Prn Tx Ordered Complications Possibly Related to Anesthesia: None Noted
--- NOTE | 2019-03-01 08:26 | GOP ---
[f rep st] OPERATIVE REPORT DATE OF OPERATION: 03/01/2019 SURGEON: Minh Pena MD ANESTHESIA: General; Dr. Sandoval. PREOPERATIVE DIAGNOSIS: Bilateral inguinal hernias. POSTOPERATIVE DIAGNOSIS: Bilateral inguinal hernias. PROCEDURE PERFORMED: Laparoscopic bilateral hernia repair. FINDINGS: See below. INDICATIONS: 58-year-old male with symptomatic bilateral inguinal hernias. He is undergoing surgical repair at this time. Risks and benefits were explained including but not limited to bleeding, infection, open conversion, bladder injury, as well as recurrence. All questions were answered. He desires to proceed. DESCRIPTION OF PROCEDURE: After general anesthesia was induced, the abdomen was preinjected with 0.5% Marcaine with epinephrine. A curvilinear infraumbilical incision was created. The right anterior rectus sheath fascia was opened. The preperitoneal space was developed with a balloon dissector and trocar until the bladder and pubic arches were identified. A structure balloon was inserted followed by two 5 mm lower midline ports. Bilateral spermatic cords were circumferentially encompassed. There were bilateral indirect sacs. The sacs were skeletonized away from the cord structures not to fall back towards the abdominal space. The direct spaces both appeared normal. A large 3D Marlex mesh patches were inserted, the right being a lightweight. The left being a regular weight patch. Satisfactory hemostasis was assured. Complete coverage of the entire myopectineal service was obtained. Trocars were removed under direct visualization. The anterior rectus sheath fascia was closed with running Vicryl suture. The wounds were closed with Monocryl and Dermabond. The patient was taken to the operating room uneventfully. /[id number]/MODL MTDD
[2019-03-01 09:46] VITALS: BP 88/58
== END 2019-03-01 09:45 | disposition home or self-care (01) ==
LOC: FSGY 06:20
PROVIDERS: ATTEND Surgery
PROC: 0YUA4JZ Supplement Bilateral Inguinal Region with Synthetic Substitute, Percutaneous Endoscopic Approach (ICD-10-PCS; principal; 2019-03-01 07:15)
DX: K40.20 Bilateral inguinal hernia, without obstruction or gangrene, not specified as recurrent (principal); I25.10 Atherosclerotic heart disease of native coronary artery without angina pectoris; I25.2 Old myocardial infarction; F43.10 Post-traumatic stress disorder, unspecified; Z87.891 Personal history of nicotine dependence; Z95.5 Presence of coronary angioplasty implant and graft
CPT/HCPCS: C1727; C1781; J1100; J1885; J2250; J2370; J2405; J2704; J3010